=== PATIENT | male | born 1990 | race Caucasian/White ===

== ENCOUNTER 2018-02-11 23:37 | Emergency (ER) | END 2018-02-12 03:29 | disposition home or self-care (01) ==

== ENCOUNTER 2018-12-05 01:16 | Emergency (ER) | payer MEDICAID ==
[~2018-12-05] VITALS: Ht 170.2 cm; Wt 62.1 kg
[~2018-12-05 01:16] MED LIST: IBUP800T48 PO; LORA-441 PO; MECL12.574 PO; OMEP20TA55 PO; RANI150T35 PO
[2018-12-05 01:21] VITALS: Ht 170.2 cm; Wt 62.1 kg
--- NOTE | 2018-12-05 06:16 | ERD ---
ER Documentation Chief Complaint Chief Complaint mid abdominal pain x 3 days HPI 27-year-old male, with history of a large hiatal hernia and gastritis, presents to the emergency department, complaining of worsening of burning epigastric pain during the last 3 days. He ran out of the omeprazole. He denies fevers, no chills, no nausea or vomiting. The patient is very concerned about his hernia and he is afraid that is getting worse and is requesting x-rays. ROS All systems reviewed and are negative except as per history of present illness. Medications Home Meds Active Scripts Acetaminophen* (Tylenol*) 325 Mg Tablet, 2 TAB PO Q8 PRN for PAIN AND OR ELEVATED TEMP, #20 TAB Prov:MARILUZ CALDERA MD 12/05/18 Ranitidine Hcl* (Zantac*) 150 Mg Tablet, 150 MG PO BID PRN for EPIGASTRIC PAIN, #30 TAB Prov:MARILUZ CALDERA MD 12/05/18 Omeprazole* (Omeprazole*) 40 Mg Capsule.dr, 40 MG PO DAILY, #30 CAP Prov:MARILUZ CALDERA MD 12/05/18 Omeprazole Magnesium (Prilosec OTC) 20 Mg Tablet.dr, 20 MG PO DAILY, #60 TAB Prov:ELADIO URBAN DO 02/12/18 Ranitidine Hcl* (Zantac*) 150 Mg Tablet, 150 MG PO BID, #60 TAB Prov:ELADIO URBAN DO 02/12/18 Lorazepam* (Ativan*) 0.5 Mg Tablet, 0.5 MG PO Q8H PRN for ANXIETY, #10 TAB Prov:TREVOR SANDS 02/05/16 Meclizine Hcl* (Antivert*) 12.5 Mg Tab, 12.5 MG PO Q6H PRN for vertigo, #10 TAB Prov:PREETHI CORTES. TOPSTITCHER ZIGZAG 12/17/15 Ibuprofen* (Motrin*) 800 Mg Tab, 800 MG PO Q6H PRN for PAIN AND OR ELEVATED TEMP, #30 TAB Prov:PREETHI CORTES. TOPSTITCHER ZIGZAG 12/17/15 Allergies Allergies: Coded Allergies: No Known Allergy (Unverified , 12/17/15) PMhx/Soc History of Surgery: No Anesthesia Reaction: No Hx Neurological Disorder: No Hx Respiratory Disorders: No Hx Cardiac Disorders: No Hx Psychiatric Problems: No Hx Miscellaneous Medical Probl: No Hx Alcohol Use: No Hx Substance Use: No Hx Tobacco Use: Yes (QUIT 2 YEARS AGO) Physical Exam Vitals Vital Signs Date Temp Pulse Resp B/P (MAP) Pulse Ox O2 O2 Flow FiO2 Time Delivery Rate 12/05/18 97.2 65 18 118/75 99 01:21 (89) Physical Exam Const: No acute distress Head: Atraumatic Eyes: Normal Conjunctiva ENT: Normal External Ears, Nose and Mouth. Neck: Full range of motion. No meningismus. Resp: Clear to auscultation bilaterally Cardio: Regular rate and rhythm, no murmurs Abd: Soft, non tender, non distended. Normal bowel sounds Skin: No petechiae or rashes Back: No midline or flank tenderness Ext: No cyanosis, or edema Neur: Awake and alert Psych: Normal Mood and Affect Results 24 hrs Patient: KATHY COOK : 1990 Age: 27 Sex: M MR #: [id number] DOS: 12/05/18 0614 Ordering MD: MARILUZ CALDERA MD Location: [facility] Room/Bed: PROCEDURE: Abdominal study CLINICAL INDICATION: Abdominal pain TECHNIQUE: 2 AP abdominal images were obtained COMPARISON: None. FINDINGS: No evidence of large or small bowel dilatation. No evidence of gross free air fluid or calcifications. Lung bases unremarkable. Bones soft tissues are unr emarkable. IMPRESSION: No evidence of mechanical bowel obstruction or intra-abdominal free air. RPTAT:AAJJ Physician Chaparro Date Time Electronically viewed and signed by Physician Chaparro on 12/05/2018 06:48 BM/ CC: MARILUZ CALDERA MD [phone] Procedures/MDM Vital signs stable. Differential diagnosis include but not limited to: Gastritis, gastroenteritis, cholelithiasis, cholecystitis, kidney stones, irritable bowel syndrome, inflammatory bowel syndrome, malabsorption syndrome, food intolerance, medication side effect, pancreatitis, diverticulitis, bowel obstruction. Low suspicion for acute abdomen. Physical examination and clinical presentation consistent most likely with acute gastritis. During the ED course the patient remained stable, no new complaints. Results and clinical impression discussed with the patient who agrees with management. The patient is stable to be treated outpatient and will be discharged home. some side effects of prescribed medications (headache, rash, n ausea, vomiting, diarrhea, drowsiness, habituation, bleeding, hypertension, interactions with other medications) were reviewed. Follow up with the primary care provider in the next 48h is recommended. If symptoms persist, worsen or new symptoms develop, then patient should return to the ED immediately. Instructions explained and given directly by me to the patient with acknowled gment and demonstrated understanding. Disclaimer: Inadvertent spelling and grammatical errors are likely due to EHR/dictation software use and do not reflect on the overall quality of patient care. Also, please note that the electronic time recorded on this note does not necessarily reflect the actual time of the patient encounter. Departure Diagnosis: Primary Impression: Gastritis Additional Impression: Hiatal hernia Condition: Stable Additional Instructions: Muchas toney por [facility] para obando servicio. Esperamos que en obando visita a la he de emergencia obando problema medico haya sido solucionado y que se sienta mucho mejor. Para estar seguros que obando mejoria sigue en proceso, le pedimos el favor de hacer pooja candy de seguimiento medico con obando doctor primario en los proximos 2-4 alvarado. Lleve con usted estos documentos y las medicinas recetadas. Si teresita sintomas empeoran, NO SE ESPERE, por favor regrese a he de emergencia INMEDIATAMENTE. En inderjit que usted no tenga un mdico de atencin primaria: Llame al mdico o clnica comunitaria de referencia que aparece abajo abbi las horas de consultorio para hacer pooja candy para que le vean. CLINICAS: [facility] [phone] [id number] [facility] [phone] [facility]. [facility] [phone] [place] [phone] [facility] [phone] [facility]. [phone] MARILUZ SESAY MD Dec 05, 2018 06:16
[2018-12-05] MEDS ORDERED: RANI150T35 PO (06:45)
[2018-12-05] MEDS ORDERED: ACET325T33 PO (06:45)
[2018-12-05] MEDS ORDERED: OMEP40CA6 PO (06:45)
[2018-12-05 07:15] VITALS: BP 128/68; PULSE 85; RESP 16
== END 2018-12-05 07:16 | disposition home or self-care (01) ==
LOC: FTE 01:16
DX: K29.70 Gastritis, unspecified, without bleeding (principal); K44.9 Diaphragmatic hernia without obstruction or gangrene; Z87.891 Personal history of nicotine dependence
CPT/HCPCS: 74018; Z7502